=== PATIENT | male | born 1990 | race Two or more races ===

== ENCOUNTER 2018-01-04 21:14 | Emergency (ER) | payer SELFPAY ==
[~2018-01-04] VITALS: Ht 185.4 cm; Wt 108.0 kg
[2018-01-04 21:48] VITALS: BP 128/98
[2018-01-04] MEDS ORDERED: ACETAMINOPHEN 325 MG TAB PO ONE (23:30)
[2018-01-05] MEDS ORDERED: BACITRACIN TOP OINT 1 UD PKG TOP ONE (01:15)
[2018-01-05] MEDS ORDERED: TETANUS-DIPTH-ACEL PERTUSSIS 0.5ML SYRG IM ONE (01:15)
== END 2018-01-05 01:37 | disposition home or self-care (01) ==
LOC: EDBD 21:14 → ER 21:22
DX: S51.831A Puncture wound without foreign body of right forearm, initial encounter (principal); F17.210 Nicotine dependence, cigarettes, uncomplicated; W54.0XXA Bitten by dog, initial encounter; Y93.89 Activity, other specified; Y99.8 Other external cause status; Y92.89 Other specified places as the place of occurrence of the external cause
CPT/HCPCS: 73090; 90471; 90715

== ENCOUNTER 2020-04-06 00:31 | Emergency (ER) | payer MEDICAID ==
[~2020-04-06] VITALS: Ht 182.9 cm; Wt 93.9 kg
[2020-04-06 02:03] LABS: Basophils # (auto) 0.1 10 ^3/uL (0-0.2); Basophils % (auto) 0.5 % (0.0-2.0); Eosinophils # (auto) 0.1 10 ^3/uL (0-0.8); Eosinophils % (auto) 0.3 % (0.0-7.0); Hematocrit 46.5 % (41.0-53.0); Lymphocytes # (auto) 2.5 10 ^3/uL (0.4-5.4); Lymphocytes % (auto) 13.9 % (10.0-50.0); Mean Corpuscular Hemoglobin 32.3 pg (28.0-32.0); Mean Corpuscular Hgb Conc. 34.4 g/dL (32.0-36.0); Mean Corpuscular Volume 93.8 fL (80.0-100.0); Monocytes # (auto) 1.2 10 ^3/uL (0-1.3); Monocytes % (auto) 6.5 % (0.0-12.0); Neutrophils # (auto) 14.3 10 ^3/uL (1.6-8.6); Neutrophils % (auto) 78.8 % (37.0-80.0); Nucleated Red Blood Cells % 0.1 %; Platelet Count (auto) 265 10^3/uL (140-450); Red Blood Cells 4.96 10^6/uL (4.5-5.90); Red Cell Distribution Width 13.7 % (11.8-14.3); White Blood Cell 18.2 10^3/uL (4.4-10.8)
[2020-04-06 02:18] LABS: BUN/Creatinine Ratio 10.5; Calcium 8.1 mg/dL (8.5-10.1); Potassium 3.7 mmol/L (3.5-5.1)
[2020-04-06 02:29] LABS: Partial Thromboplastin Time 26.1 sec (23.0-31.2)
[2020-04-06] MEDS ORDERED: LIDOCAINE 1% HCL (LOCAL ANESTH.) INJ 20ML MDV ID ONE (02:45)
[2020-04-06] MEDS ORDERED: MIDAZOLAM HCL 5 MG/ML-1ML VIAL IV ONE ×2 (05:30→09:00)
[2020-04-06] MEDS ORDERED: fentaNYL CITRATE 100 MCG/2 ML VL IM ONE (05:30)
[2020-04-06] MEDS ORDERED: SODIUM CHLORIDE 0.9% 1,000 ML IV ONE (06:45)
[2020-04-06] MEDS ORDERED: MIDAZOLAM HCL 5 MG/ML-1ML VIAL ONE (08:47)
[2020-04-06] MEDS ORDERED: PROPOFOL 100 ML IV ONE (08:47)
[2020-04-06] MEDS ORDERED: PROPOFOL 10 MG/ML 20 ML IV ONE ×5 (08:55→11:02)
[2020-04-06] MEDS ORDERED: fentaNYL CITRATE 100 MCG/2 ML VL ONE ×2 (09:03→11:01)
[2020-04-06] MEDS ORDERED: fentaNYL CITRATE 100 MCG/2 ML VL IV ONE (09:04)
[2020-04-06] MEDS ORDERED: KETAMINE HCL 10 ML ONE (11:01)
[2020-04-06] MEDS ORDERED: GLYCOPYRROLATE 0.2 MG/ML 1ML VIAL ONE (11:02)
[2020-04-06] MEDS ORDERED: KETOROLAC TROMETH 30 MG/ML 1ML VIAL ONE (11:02)
[2020-04-06] MEDS ORDERED: ONDANSETRON HCL 4 MG/2 ML VIAL ONE (11:02)
[2020-04-06 14:01] VITALS: BP 139/92
== END 2020-04-06 14:20 | disposition home or self-care (01) ==
LOC: EDUNIT# 00:31 → ER 00:31 → EDBD 00:31 → ER 14:20
DX: S43.005A Unspecified dislocation of left shoulder joint, initial encounter (principal); R51.9 Headache, unspecified; Y08.89XA Assault by other specified means, initial encounter; Y93.89 Activity, other specified; Y92.89 Other specified places as the place of occurrence of the external cause; Y99.8 Other external cause status
CPT/HCPCS: 23650; 36415; 70450; 70486; 73020; 80048; 80320; 85025; 85610; 85730; 96360; 96372; 99152; 99285; J1885; J2250; J2405; J2704; J3010; J7030

== ENCOUNTER 2020-07-12 09:46 | Emergency (ER) | payer MEDICAID ==
[~2020-07-12] VITALS: Ht 182.9 cm; Wt 93.9 kg
[2020-07-12] MEDS ORDERED: MIDAZOLAM HCL 5 MG/ML-1ML VIAL IV ONE (10:00)
[2020-07-12] MEDS ORDERED: fentaNYL CITRATE 100 MCG/2 ML VL IV ONE ×2 (10:00→10:45)
[2020-07-12] MEDS ORDERED: SODIUM CHLORIDE 0.9% 1,000 ML IV ONE (10:00)
[2020-07-12] MEDS ORDERED: PROPOFOL 0 ML IV ONE (10:35)
[2020-07-12] MEDS ORDERED: ETOMIDATE (2MG/ML) 20ML VIAL IV ONE ×2 (10:36→10:45)
[2020-07-12 12:10] VITALS: BP 132/80
== END 2020-07-12 13:02 | disposition home or self-care (01) ==
LOC: ER 09:46 → EDBD 09:46 → ER 13:02
DX: S43.085A Other dislocation of left shoulder joint, initial encounter (principal); F17.210 Nicotine dependence, cigarettes, uncomplicated; X58.XXXA Exposure to other specified factors, initial encounter; Y93.89 Activity, other specified; Y92.89 Other specified places as the place of occurrence of the external cause; Y99.8 Other external cause status
CPT/HCPCS: 23650; 73020; 73030; 96361; 96374; 99285; J2250; J3010; J7030; J2704

== ENCOUNTER 2021-04-12 16:19 | Emergency (ER) | payer MEDICAID ==
[~2021-04-12] VITALS: Ht 182.9 cm; Wt 112.0 kg
[2021-04-12] MEDS ORDERED: HYDROmorphone HCL 2 MG/ML VL IV ONE ×2 (17:00→18:30)
[2021-04-12] MEDS ORDERED: MIDAZOLAM HCL 5 MG/ML-1ML VIAL IV ONE (18:45)
[2021-04-12] MEDS ORDERED: ETOMIDATE (2MG/ML) 20ML VIAL IV ONE (19:45)
[2021-04-12] MEDS ORDERED: BACITRACIN TOP OINT 1 UD PKG TOP ONE ×2 (20:28→20:30)
[2021-04-12] MEDS ORDERED: BAC09TP TOP (21:37)
[2021-04-12] MEDS ORDERED: NAP500T PO (21:37)
[2021-04-12 22:50] VITALS: BP 120/84
== END 2021-04-12 23:12 | disposition home or self-care (01) ==
LOC: ER 16:19 → EDBD 16:19 → ER 23:12
DX: S43.005A Unspecified dislocation of left shoulder joint, initial encounter (principal); S01.01XA Laceration without foreign body of scalp, initial encounter; R41.82 Altered mental status, unspecified; Y04.2XXA Assault by strike against or bumped into by another person, initial encounter; Y93.89 Activity, other specified; Y92.89 Other specified places as the place of occurrence of the external cause; Y99.8 Other external cause status
CPT/HCPCS: 23650; 29125; 70450; 71250; 72131; 73020; 73030; 73090; 73110; 96374; 96376; 99285; J1170; J2250

== ENCOUNTER 2021-04-27 12:21 | Emergency (ER) | payer MEDICAID ==
[~2021-04-27] VITALS: Ht 182.9 cm; Wt 112.0 kg
[~2021-04-27 12:21] MED LIST: BAC09TP TOP; NAP500T PO
[2021-04-27 12:35] VITALS: BP 135/83
== END 2021-04-27 14:57 | disposition home or self-care (01) ==
LOC: ER 12:21
DX: S01.01XD Laceration without foreign body of scalp, subsequent encounter (principal); F17.210 Nicotine dependence, cigarettes, uncomplicated; Z79.899 Other long term (current) drug therapy; X58.XXXD Exposure to other specified factors, subsequent encounter